=== PATIENT | male | born 1990 | race Caucasian/White ===

== ENCOUNTER 2017-09-10 14:18 | Emergency (ER) | payer OTHER ==
[~2017-09-10] VITALS: Ht 188 cm; Wt 113.4 kg
--- NOTE | 2017-09-10 15:00 | RAD ---
Right elbow, 3 views, 09/10/2017: History: Elbow pain after a fall No fracture or dislocation is identified. There is no radiographic evidence of an elbow joint effusion. IMPRESSION: No acute bony abnormality is detected.
[2017-09-10] MEDS ORDERED: methylPREDNISolone SOD SUCC PF 40 MG/ML VIAL. IM ONE (15:30)
[2017-09-10] MEDS ORDERED: methylPREDNISolone SOD SUCC PF 40 MG/ML VIAL. IV ONE (15:30)
--- NOTE | 2017-09-10 15:53 | PHYS DOC ---
Past History Past Medical History: No Pertinent History Past Surgical History: No Surgical History Alcohol Use: None Drug Use: None Adult General Chief Complaint Chief Complaint: UPPER EXTREMITY INJURY HPI HPI Patient is a 26 year old M who presents with right elbow pain. 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 His elbow was extended and impacted the ground. After which she had pain in his elbow and numbness/tingling in his fourth and fifth fingers. He feels that he can move his hand that there is mild limited strength possibly due to pain. He has no other exacerbating or alleviating factors. He has no other associated symptoms at this time. Review of Systems Review of Systems Constitutional: Denies fever or chills [] Eyes: Denies change in visual acuity, redness, or eye pain [] HENT: Denies nasal congestion or sore throat [] Respiratory: Denies cough or shortness of breath [] Cardiovascular: No additional information not addressed in HPI [] GI: Denies abdominal pain, nausea, vomiting, bloody stools or diarrhea [] : Denies dysuria or hematuria [] Musculoskeletal: Denies back pain Integument: Denies rash or skin lesions [] Neurologic: Denies headache, focal weakness or sensory changes [] Endocrine: Denies polyuria or polydipsia [] All other systems were reviewed and found to be within normal limits, except as documented in this note. Family History Family History noncontributory Current Medications Current Medications Current Medications Medications (Trade) Dose Ordered Sig/[facility] Start Time Stop Time Status Last Admin Dose Admin Methylprednisolone Sodium Succinate (SOLU-Medrol 40MG VIAL) 40 mg 1X ONCE 09/10/17 15:30 09/10/17 15:31 UNV Allergies Allergies NKDA Physical Exam Physical Exam Constitutional: Well developed, well nourished, no acute distress, non-toxic appearance. [] HENT: Normocephalic, atraumatic, bilateral external ears normal, oropharynx moist, no oral exudates, nose normal. [] Eyes: EOMI, conjunctiva normal, no discharge. [] Neck: Normal range of motion, no tenderness, supple, no stridor. [] Cardiovascular:Heart rate regular rhythm, no murmur [] Lungs & Thorax: Bilateral breath sounds clear to auscultation [] Abdomen: Bowel sounds normal, soft, no tenderness, no masses, no pulsatile masses. [] Skin: Warm, dry, no erythema, no rash. [] Back: No tenderness, no CVA tenderness. [] Extremities: Mild generalized tenderness over the right elbow. Radiating pain to the fourth and fifth fingers with palpation of at the ulnar groove. This did reproduce his symptoms. 4/5 strength in the right hand in comparison to the left. No noted focal weakness Neurologic: Alert and oriented X 3, normal motor function, normal sensory function, no focal deficits noted. [] Psychologic: Affect normal, judgement normal, mood normal. [] Current Patient Data Vital Signs Vital Signs Date Time Temp Pulse Resp B/P (MAP) Pulse Ox O2 Delivery O2 Flow Rate FiO2 09/10/17 14:35 98.3 69 16 95 Room Air EKG EKG [] Radiology/Procedures Radiology/Procedures Right elbow x-ray Impressions: No acute disease Course & Med Decision Making Course & Med Decision Making Pertinent Labs and Imaging studies reviewed. (See chart for details) [] Dragon Disclaimer Dragon Disclaimer This electronic medical record was generated, in whole or in part, using a voice recognition dictation system. Departure Departure: Impression: Primary Impression: Contusion of ulnar nerve Disposition: HOME, SELF-CARE Condition: STABLE Referrals: PCP,NO (PCP) Patient Instructions: Ulnar Nerve Contusion with Rehab-[facility] Additional Instructions: Chele was seen in the emergency department for elbow pain. No emergency medical condition was found on history or physical exam. He did have normal imaging of his elbow. Symptoms are most consistent with an ulnar nerve contusion or bruising of the nerve. He is encouraged to continue using his arm as tolerated and to avoid activities that would further injure his elbow. He was advised to follow up with his primary care doctor in the next 3-5 days for further management. Problem Qualifiers Primary Impression: Contusion of ulnar nerve Encounter type: initial encounter Laterality: right Qualified Codes: S54.01XA - Injury of ulnar nerve at forearm level, right arm, initial encounter MARIAM MARSHALL MD Sep 10, 2017 15:53
[2017-09-10 16:05] VITALS: BP 143/50
== END 2017-09-10 16:09 | disposition home or self-care (01) ==
LOC: ER 14:18
DX: S54.01XA Injury of ulnar nerve at forearm level, right arm, initial encounter (principal); X50.9XXA Other and unspecified overexertion or strenuous movements or postures, initial encounter; Y93.89 Activity, other specified; Y99.8 Other external cause status; Y92.89 Other specified places as the place of occurrence of the external cause
CPT/HCPCS: 73080; 96372; 99284; J2920

== ENCOUNTER 2017-09-17 20:07 | Emergency (ER) | payer OTHER ==
[~2017-09-17] VITALS: Ht 188 cm; Wt 117.9 kg
--- NOTE | 2017-09-17 20:24 | ED.ADGEN ---
Past History Past Medical History: No Pertinent History Past Surgical History: No Surgical History Alcohol Use: None Drug Use: None Adult General Chief Complaint Chief Complaint " I ve been nauseated all day... diarrhea x 7.. and vomiting x 2.. and I hurting down here on Lt..." HPI HPI Patient is a 26 year old male who presents with above hx and complaints. Works at [employer]. Patient denies any recent travel. Patient denies any intake bad food. Patient denies any specific ill contacts. Patient has generalized abdomen tenderness. No focal areas. No psoas sign. No obturator sign. Patient reportedly normally healthy. Patient has no surgical history. Is on city water. Review of Systems Review of Systems Constitutional: Denies fever or chills [] Eyes: Denies change in visual acuity, redness, or eye pain [] HENT: Denies nasal congestion or sore throat [] Respiratory: Denies cough or shortness of breath [] Cardiovascular: No additional information not addressed in HPI [] GI: History of generalized abdominal pain, nausea, vomiting, and diarrhea [] : Denies dysuria or hematuria [] Musculoskeletal: Denies back pain or joint pain [] Integument: Denies rash or skin lesions [] Neurologic: Denies headache, focal weakness or sensory changes [] Endocrine: Denies polyuria or polydipsia [] All other systems were reviewed and found to be within normal limits, except as documented in this note. Family History Family History Noncontributory Current Medications Current Medications Current Medications Medications (Trade) Dose Ordered Sig/[facility] Start Time Stop Time Status Last Admin Dose Admin Famotidine (Pepcid Vial) 20 mg 1X ONCE 09/17/17 20:30 09/17/17 22:22 DC 09/17/17 20:30 20 MG Ketorolac Tromethamine (Toradol) 30 mg 1X ONCE 09/17/17 20:30 09/17/17 22:22 DC 09/17/17 20:30 30 MG Lactated Ringer's 1,000 ml @ 1,000 mls/hr Q1H 09/17/17 20:30 09/17/17 22:22 DC 09/17/17 21:21 1,000 MLS/HR Morphine Sulfate (Morphine 10mg Syringe) 10 mg STK-MED ONCE 09/17/17 21:06 09/17/17 21:49 AR Ondansetron HCl (Zofran) 8 mg 1X ONCE 09/17/17 20:30 09/17/17 22:22 DC 09/17/17 20:30 8 MG See nursing for home medications Allergies Allergies Allergies Coded Allergies Type Severity Reaction Last Updated Verified No Known Drug Allergies 09/17/17 No No known drug allergies Physical Exam Physical Exam Constitutional: Well developed, well nourished, mild distress, non-toxic appearance. [] HENT: Normocephalic, atraumatic, bilateral external ears normal, oropharynx moist, no oral exudates, nose normal. [] Eyes: PERRLA, EOMI, conjunctiva normal, no discharge. [] Neck: Normal range of motion, no tenderness, supple, no stridor. [] Cardiovascular:Heart rate regular rhythm, no murmur [] Lungs & Thorax: Bilateral breath sounds clear to auscultation [] Abdomen: Bowel sounds hyperactive, soft, mild generalized tenderness, no masses , no pulsatile masses. [No testicle tenderness. Abdomen is tympanic Skin: Warm, dry, no erythema, no rash. [] Back: No tenderness, no CVA tenderness. [] Extremities: No tenderness, no cyanosis, no clubbing, ROM intact, no edema. No heel tap, psoas or obturator sign. Neurologic: Alert and oriented X 3, normal motor function, normal sensory function, no focal deficits noted. [] Psychologic: Affect anxious, judgement normal, mood normal. [] Current Patient Data Vital Signs Vital Signs Date Time Temp Pulse Resp B/P (MAP) Pulse Ox O2 Delivery O2 Flow Rate FiO2 09/17/17 20:23 98.0 100 16 95 Room Air Lab Results Laboratory Tests Test 09/17/17 20:45 09/17/17 21:10 White Blood Count 10.2 x10^3/uL (4.0-11.0) Red Blood Count 5.40 x10^6/uL (4.30-5.70) Hemoglobin 14.9 g/dL (13.0-17.5) Hematocrit 44.0 % (39.0-53.0) Mean Corpuscular Volume 82 fL (79-100) Mean Corpuscular Hemoglobin 28 pg (25-35) Mean Corpuscular Hemoglobin Concent 34 g/dL (31-37) Red Cell Distribution Width 13.5 % (11.5-14.5) Platelet Count 279 x10^3/uL (140-400) Neutrophils (%) (Auto) 68 % (31-73) Lymphocytes (%) (Auto) 25 % (24-48) Monocytes (%) (Auto) 5 % (0-9) Eosinophils (%) (Auto) 2 % (0-3) Basophils (%) (Auto) 0 % (0-3) Neutrophils # (Auto) 6.9 x10^3uL (1.8-7.7) Lymphocytes # (Auto) 2.6 x10^3/uL (1.0-4.8) Monocytes # (Auto) 0.5 x10^3/uL (0.0-1.1) Eosinophils # (Auto) 0.2 x10^3/uL (0.0-0.7) Basophils # (Auto) 0.0 x10^3/uL (0.0-0.2) Prothrombin Time 10.0 SEC (9.4-11.4) Prothrombin Time INR 1.0 (0.9-1.1) PTT 22 SEC (23-33) L Sodium Level 141 mmol/L (136-145) Potassium Level 3.5 mmol/L (3.5-5.1) Chloride Level 103 mmol/L (98-107) Carbon Dioxide Level 30 mmol/L (21-32) Anion Gap 8 (6-14) Blood Urea Nitrogen 14 mg/dL (8-26) Creatinine 0.9 mg/dL (0.7-1.3) Estimated GFR (Cockcroft-Gault) 100.5 Glucose Level 117 mg/dL (70-99) H Calcium Level 9.1 mg/dL (8.5-10.1) Total Bilirubin 0.3 mg/dL (0.2-1.0) Direct Bilirubin 0.1 mg/dL (0.0-0.2) Aspartate Amino Transferase (AST) 28 U/L (15-37) Alanine Aminotransferase (ALT) 76 U/L (16-63) H Alkaline Phosphatase 88 U/L (46-116) Total Protein 7.5 g/dL (6.4-8.2) Albumin 4.0 g/dL (3.4-5.0) Amylase Level 33 U/L (25-115) Lipase 82 U/L (73-393) Urine Collection Type Unknown Urine Color Straw Urine Clarity Clear Urine pH 7.0 Urine Specific [place] 1.015 Urine Protein Neg (NEG-TRACE) Urine Glucose (UA) Neg mg/dL (NEG) Urine Ketones (Stick) Neg mg/dL (NEG) Urine Blood Neg (NEG) Urine Nitrite Neg (NEG) Urine Bilirubin Neg (NEG) Urine Urobilinogen Dipstick 0.2 mg/dL (0.2 mg/dL) Urine Leukocyte Esterase Neg (NEG) Urine RBC Occ /HPF (0-2) Urine WBC 1-4 /HPF (0-4) Urine Squamous Epithelial Cells Few /LPF Urine Amorphous Sediment Present /HPF Urine Bacteria 0 /HPF (0-FEW) Urine Mucus Slight /LPF EKG EKG [] Radiology/Procedures Radiology/Procedures My interpretation of x-ray of abdomen shows no acute cardiopulmonary findings. No free air under the diaphragm. Non-obstructive bowel gas pattern. Stool in right colon.[] Course & Med Decision Making Course & Med Decision Making Pertinent Labs and Imaging studies reviewed. (See chart for details). Patient must stay on a clear fluid diet only no solids no milk products clear fluids only to allow bowel rest for the next 2 days. Take meds as directed. Follow-up primary care. Return if any concerns. Must remain on a clear fluid diet to allow bowel rest. Have re exam if no improvement. [] Final Impression Final Impression 1. Abdomen Pain[] 2. Gastroenteritis Problems: Dragon Disclaimer Dragon Disclaimer This electronic medical record was generated, in whole or in part, using a voice recognition dictation system. HAKAN VALERIO MD Sep 17, 2017 20:24
[2017-09-17] MEDS ORDERED: IV RINGERS SOLUTION,LACTATED 1,000 ML IV SCH (20:30)
[2017-09-17] MEDS ORDERED: MORPHINE SULFATE 10 MG/ML SYRINGE. SQ ONE (20:30)
[2017-09-17] MEDS ORDERED: FAMOTIDINE 20 MG/2 ML VIAL IVP ONE (20:30)
[2017-09-17] MEDS ORDERED: ONDANSETRON PF 4 MG/2 ML VIAL. IV ONE (20:30)
[2017-09-17] MEDS ORDERED: KETOROLAC 30 MG/ML VIAL. IV ONE (20:30)
[2017-09-17] MEDS ORDERED: MORPHINE SULFATE 10 MG/ML SYRINGE. ONE (21:06)
[2017-09-17 21:13] LABS: BASO % 0 % (0-3); EOS # 0.2 x10^3/uL (0.0-0.7); EOS % 2 % (0-3); HEMOGLOBIN 14.9 g/dL (13.0-17.5); LYMPH # 2.6 x10^3/uL (1.0-4.8); LYMPH % 25 % (24-48); MEAN CORPUSCULAR HEMOGLOBIN 28 pg (25-35); MEAN CORPUSCULAR HGB CONC 34 g/dL (31-37); MEAN CORPUSCULAR VOLUME 82 fL (79-100); MONO # 0.5 x10^3/uL (0.0-1.1); MONO % 5 % (0-9); NEUT # 6.9 x10^3uL (1.8-7.7); NEUT % 68 % (31-73); PLATELET COUNT 279 x10^3/uL (140-400); RED CELL DISTRIBUTION WIDTH 13.5 % (11.5-14.5); WHITE BLOOD COUNT 10.2 x10^3/uL (4.0-11.0)
[2017-09-17 21:20] LABS: CALCIUM 9.1 mg/dL (8.5-10.1); CREATININE 0.9 mg/dL (0.7-1.3); DIRECT BILIRUBIN 0.1 mg/dL (0.0-0.2); GFR 100.5; POTASSIUM 3.5 mmol/L (3.5-5.1); TOTAL BILIRUBIN 0.3 mg/dL (0.2-1.0); TOTAL PROTEIN 7.5 g/dL (6.4-8.2)
[2017-09-17] MEDS ORDERED: HYDR-79 PO (21:52)
[2017-09-17] MEDS ORDERED: ONDA8TAB12 PO (21:52)
[2017-09-17] MEDS ORDERED: MORPHINE SULFATE 10 MG/ML SYRINGE. IV ONE (22:00)
[2017-09-17 22:03] LABS: BACTERIA,URINE 0 /HPF (0-FEW); BILIRUBIN,URINE NEG (NEG); CLARITY,URINE CLEAR; COLOR,URINE STRAW; GLUCOSE,URINE NEG (NEG); NITRITE,URINE NEG (NEG); RBC,URINE OCC /HPF (0-2); SQUAMOUS EPITHELIAL CELL,UR FEW /LPF; UROBILINOGEN,URINE 0.2 mg/dL (0.2 mg/dL)
[2017-09-17 22:04] LABS: AMORPHOUS SEDIMENT,UR PRESENT /HPF
[2017-09-17 22:50] VITALS: BP 136/76
--- NOTE | 2017-09-18 07:28 | RAD ---
Indication: Left lower abdominal pain beginning yesterday. Technique: Abdominal series with PA chest radiograph contains 5 images. No comparison is available. Findings: There is no free air. There is no dilated small bowel loop or air-fluid level. There is gas to the rectum. Calcified phlebolith is noted in the pelvis. The lungs are clear. The heart is not enlarged. Bony structures are intact. Impression: Nonobstructive bowel gas pattern.
== END 2017-09-17 22:50 | disposition home or self-care (01) ==
LOC: ER 20:07
DX: K52.9 Noninfective gastroenteritis and colitis, unspecified (principal)
CPT/HCPCS: 36415; 74022; 80048; 80076; 81001; 82150; 83690; 85025; 85610; 85730; 96361; 96374; 96375; 99285; J1885; J2270; J2405; J7120; S0028